=== PATIENT | male | born 1990 | race Caucasian/White ===

== ENCOUNTER 2023-05-28 23:00 | Emergency (ER) | payer OTHER ==
[~2023-05-28] VITALS: Ht 175.3 cm; Wt 81.6 kg
[2023-05-28 23:03] VITALS: BP 136/92; PULSE 70; RESP 16; TEMP 97.5; O2SAT 100
[2023-05-29] MEDS ORDERED: ACETAMINOPHEN EXTRA STRENGTH 500 MG TAB PO ONE (02:20)
[2023-05-29] MEDS ORDERED: KETOROLAC 15 MG/ML VIAL IM ONE (02:20)
[2023-05-29 02:52] LABS: APPEARANCE,URINE CLEAR (CLEAR); BILIRUBIN,URINE NEGATIVE (NEGATIVE); BLOOD, URINE NEGATIVE (NEGATIVE); COLOR,URINE YELLOW (YELLOW); LEUKOCYTE ESTERASE ,URINE NEGATIVE (NEGATIVE); NITRITE, URINE NEGATIVE (NEGATIVE); PROTEIN,URINE NEGATIVE (NEGATIVE); UGLUCOSE NEGATIVE (NEGATIVE); UROBILINOGEN,URINE 0.2 EU/dL (0.2 - 1)
[2023-05-29 02:56] LABS: BASOPHILS # (AUTO) 0.1 K/uL (0.00-0.22); BASOPHILS % (AUTO) 0.6 % (0.0-2.0); EOSINOPHILS # (AUTO) 0.2 K/uL (0-0.4); EOSINOPHILS % (AUTO) 1.8 % (0.0-4.0); HEMATOCRIT 45.1 % (36-52); HEMOGLOBIN 15.2 g/dL (12.0-18.0); LYMPHOCYTES # (AUTO) 2.1 K/uL (2.0-11.5); LYMPHOCYTES % (AUTO) 18.2 % (20.5-51.1); MEAN CORPUSCULAR HEMOGLOBIN 30 pg (27-31); MEAN CORPUSCULAR HGB CONC 34 g/dL (33-37); MEAN CORPUSCULAR VOLUME 90.3 fL (80-94); MONOCYTES # (AUTO) 0.7 K/uL (0.8-1.0); MONOCYTES % (AUTO) 6.3 % (1.7-9.3); NEUTROPHILS # (AUTO) 8.5 K/uL (1.8-7.7); NEUTROPHILS % (AUTO) 73.1 % (42.2-75.2); PLATELET COUNT (AUTO) 317 K/uL (140-450); WHITE BLOOD COUNT (AUTO) 11.6 K/uL (4.8-10.8)
[2023-05-29 03:04] LABS: ALBUMIN 3.3 g/dL (3.4-5.0); ANION GAP 9.4 (8-16); CALCIUM 8.4 mg/dL (8.5-10.1); CARBON DIOXIDE 29.5 mmol/L (21-32); CREATININE 1.2 mg/dL (0.6-1.3); POTASSIUM 3.9 mmol/L (3.5-5.1); TOTAL BILIRUBIN 0.4 mg/dL (0.0-1.0); TOTAL PROTEIN, SERUM 6.7 g/dL (6.4-8.2)
[2023-05-29] MEDS ORDERED: ALUMINUM HYD/MAG/SIMETHICONE 30 ML UDC PO ONE (09:45)
[2023-05-29] MEDS ORDERED: KETOROLAC 15 MG/ML VIAL IVP ONE (09:45)
[2023-05-29] MEDS ORDERED: DICYCLOMINE HCL LIQUID 10 MG/5 ML UDC PO ONE (09:45)
[2023-05-29] MEDS ORDERED: BEN10 PO (09:47)
[2023-05-29] MEDS ORDERED: MAG355OR2 PO (09:47)
[2023-05-29] MEDS ORDERED: KETOROLAC 30 MG/ML VIAL ONE (09:48)
[2023-05-29 10:17] VITALS: BP 122/80; PULSE 71; RESP 20; TEMP 98; O2SAT 99
== END 2023-05-29 10:16 | disposition home or self-care (01) ==
LOC: MED 23:00
DX: R10.11 Right upper quadrant pain (principal); Z79.899 Other long term (current) drug therapy
CPT/HCPCS: 36415; 74177; 80053; 81003; 83690; 85025; 96374; 96376; 99285; J1885; Q9967